=== PATIENT | female | born 1990 | race Caucasian/White ===

== ENCOUNTER 2018-12-16 13:06 | Day surgery (SDC) | payer OTHER ==
[~2018-12-16] VITALS: Ht 162.6 cm; Wt 86.6 kg
[~2018-12-16 13:06] MED LIST: ACYC400 PO; BCP'S; FLUO20 PO; IBUP800 PO; MULVITMINE PO; [UNRECOGNIZED DRUG - REMARK]
--- NOTE | 2018-12-16 14:22 | NUR ---
12/16/18 1422 Yanira Smith PREOP TEACHING COMPLETED. PT RESTING IN [facility] WITH CALL LIGHT WITHIN REACH.
--- NOTE | 2018-12-16 15:14 | NUR ---
12/16/18 1514 Jillian Hastings ORS.JAR UPPER PREP-POG ORSC.JJW LOWER PREP-DURAPREP
--- NOTE | 2018-12-16 15:55 | NUR ---
12/16/18 1555 Robina Allen STATES NAUSEA SOMEWHAT BETTER NOW. VSS WILL MOVE TO SDU
--- NOTE | 2018-12-16 16:18 | NUR ---
12/16/18 1358 Bushra Edwards PT IS IN THE RECLINER WITH EYES CLOSED AT THIS TIME. PT IS NOT GRIMACING OR MOVING AT THIS TIME. VSS. RN APPLIED WARM BLANKETS AND PILLOWS FOR COMFORT. WATER AT CHAIRSIDE. CALL LIGHT IN REACH.
== END 2018-12-16 17:05 | disposition home or self-care (01) ==
LOC: ORSCSDS 13:06
PROVIDERS: Obstetrics & Gynecology
PROC: 0UT74ZZ Resection of Bilateral Fallopian Tubes, Percutaneous Endoscopic Approach (ICD-10-PCS; principal; 2018-12-16 14:30)
DX: Z30.2 Encounter for sterilization (principal); N80.3 Endometriosis of pelvic peritoneum; F17.210 Nicotine dependence, cigarettes, uncomplicated
CPT/HCPCS: 88302; J0690; J1100; J2250; J2405; J2710; J3010; J7120

== ENCOUNTER 2021-06-22 14:44 | Emergency (ER) | payer OTHER ==
[~2021-06-22] VITALS: Ht 157.5 cm; Wt 67.6 kg
[2021-06-22 15:47] LABS: BASOPHILS ABSOLUTE AUTO 0.04 K/mm3 (0.00-0.23); BASOPHILS PERCENT AUTO 0 % (0-2); EOSINOPHILS ABSOLUTE AUTO 0.05 K/mm3 (0.00-0.68); EOSINOPHILS PERCENT AUTO 1 % (0-6); Hematocrit 43.4 % (33.0-51.0); Hemoglobin 15.4 g/dL (11.5-16.0); IMMATURE GRAN ABSOLUTE AUTO 0.02 K/mm3 (0.00-0.10); IMMATURE GRAN PERCENT AUTO 0 % (0-1); LYMPHOCYTES ABSOLUTE AUTO 0.94 K/mm3 (0.84-5.20); LYMPHOCYTES PERCENT AUTO 9 % (21-46); MONOCYTES ABSOLUTE AUTO 0.74 K/mm3 (0.16-1.47); MONOCYTES PERCENT AUTO 7 % (4-13); Mean Corpuscular HGB 33.4 pg (26.0-34.0); Mean Corpuscular HGB Conc 35.5 g/dL (31.5-36.5); Mean Corpuscular Volume 94 fL (80-100); Mean Platelet Volume 9.3 fL (9.1-12.4); NEUTROPHILS ABSOLUTE AUTO 8.41 K/mm3 (1.96-9.15); NEUTROPHILS PERCENT AUTO 82 % (41-73); Platelet Count 197 K/mm3 (150-400); RDW Coefficient Variation 11.7 % (11.7-14.2); RDW Standard Deviation 40.5 fL (35.1-46.3); Red Blood Cell Count 4.61 M/mm3 (3.80-5.20)
[2021-06-22 16:04] LABS: Alanine Aminotransfer (ALT/SGP 17 U/L (12-78); Albumin, Blood 3.3 g/dL (3.4-5.0); Albumin/Globulin Ratio 0.8 (0.8-1.8); Alk Phos 96 U/L (50-136); Anion Gap 7 mmol/L (6-16); Aspartate Aminotrans (AST/SGOT 14 U/L (12-37); Bilirubin, Total 1.1 mg/dL (0.1-1.0); Blood Urea Nitrogen 8 mg/dL (8-24); CO2, Blood 23 mmol/L (21-32); Calcium, Blood 8.6 mg/dL (8.5-10.1); Chloride, Blood 101 mmol/L (98-108); Creatinine, Blood 0.73 mg/dL (0.40-1.00); Globulin, Blood 3.9 g/dL (2.2-4.0); Glomerular Filtration Rate >60 (60-); Glucose, Blood 121 mg/dL (70-99); Potassium, Blood 3.7 mmol/L (3.5-5.5); Sodium, Blood 131 mmol/L (136-145); Total Protein, Blood 7.2 g/dL (6.4-8.2)
[2021-06-22 18:18] LABS: Source, Urine Clean Catch
[2021-06-22 18:37] LABS: Appearance, Urine Hazy (Clear); Bilirubin, Urine Neg (Neg); Blood, Urine 5+ (Neg); Color, Urine Yellow (P-Yellow); Glucose Qualitative, Urine Neg (Neg); Ketones, Urine Neg (Neg); Leukocyte Esterase, Urine 3+ (Neg); Nitrite, Urine Pos (Neg); Protein, Urine 2+ (Neg); Urobilinogen, Urine NORM (Normal)
[2021-06-22 18:48] LABS: White Blood Cells, Urine 25-50 /hpf (0-5)
[2021-06-22 18:49] LABS: Bacteria Many /hpf; Squamous Epithelial Cells Few /hpf (Few)
[2021-06-22] MEDS ORDERED: Norco 7.5-3251 EACH PO (19:29)
[2021-06-22] MEDS ORDERED: CEFP200 PO (19:29)
[2021-06-22] MEDS ORDERED: IBUP800 PO (19:29)
== END 2021-06-22 20:10 | disposition home or self-care (01) ==
LOC: ER 14:44
PROVIDERS: Physician Assistant
DX: N10 Acute pyelonephritis (principal); B96.20 Unspecified Escherichia coli [E. coli] as the cause of diseases classified elsewhere; Z20.822 Contact with and (suspected) exposure to COVID-19; Z88.0 Allergy status to penicillin
CPT/HCPCS: 36415; 80053; 81001; 81025; 85025; 87077; 87086; 87186; 96365; 96375; 99283-25; J0696; J1885; J7030